=== PATIENT | female | born 1995 | race Two or more races ===

== ENCOUNTER 2016-08-19 20:56 | Outpatient (CLI) | payer MEDICAID ==
[~2016-08-19] VITALS: Ht 160 cm; Wt 99.1 kg
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
[~2016-08-19 20:56] MED LIST: BREO ELLIPTA 11 EACH INH; DRISDOL 5050000 UNIT PO; MINIPRESS2 MG PO; MYCOSTATIN OINT30 GM TOP; PROVERA10 MG PO; PROZAC10 MG PO; VITAMIN D35000 UNI1 PO; ZOLOFT50 MG PO
[2016-08-19 21:39] LABS: BILIRUBIN URINE NEGATIVE (NEGATIVE); BLOOD URINE NEGATIVE /UL (NEGATIVE); COLOR URINE YELLOW (YELLOW); GLUCOSE URINE NEGATIVE (NEGATIVE); KETONE URINE NEGATIVE (NEGATIVE); LEUKOCYTES URINE 25 /UL (NEGATIVE); NITRITE URINE NEGATIVE (NEGATIVE); PROTEIN URINE NEGATIVE (NEGATIVE); TURBIDITY URINE CLEAR (CLEAR); UROBILINOGEN URINE 1 mg/dL (NORMAL)
[2016-08-19 21:46] LABS: BACTERIA URINE FEW (NEGATIVE); RBC URINE NEGATIVE #/HPF (NEGATIVE); WBC URINE 0-2 #/HPF (NEGATIVE)
[2016-08-19] MEDS ORDERED: PROVENTIL OR V6.7 GM INH (21:55)
[2016-08-19] MEDS ORDERED: PROAIR HFA8.5 GM INH (21:56)
[2016-08-19] MEDS ORDERED: FLAGYL500 M1 PO (21:58)
[2016-08-19] MEDS ORDERED: PHENERGAN25 M1 PO (22:00)
[2016-08-19] MEDS ORDERED: ZOLOFT50 MG PO (22:00)
[2016-08-19] MEDS ORDERED: ZANTAC300 MG PO (22:02)
[2016-08-19] MEDS ORDERED: PROGESTERONE200 MG VAG (22:04)
[2016-08-19] MEDS ORDERED: PRENATAL 1+1)(P1 TAB PO (22:05)
[2016-11-07] MEDS ORDERED: TUMS200 MG PO (17:29)
== END 2016-08-19 23:00 | disposition disaster alternative care site (69) ==
LOC: GOBM 20:56 → GOBS 20:57 → GOBM 23:00
PROVIDERS: Family Medicine
DX: O47.02 False labor before 37 completed weeks of gestation, second trimester (principal); Z3A.26 26 weeks gestation of pregnancy; J45.909 Unspecified asthma, uncomplicated; K21.9 Gastro-esophageal reflux disease without esophagitis; O26.892 Other specified pregnancy related conditions, second trimester; O99.342 Other mental disorders complicating pregnancy, second trimester; F32.9 Major depressive disorder, single episode, unspecified
CPT/HCPCS: G0463

== ENCOUNTER 2016-11-09 05:41 | Inpatient (IN) | payer MEDICAID ==
[~2016-11-09] VITALS: Ht 162.6 cm; Wt 107.1 kg
--- NOTE | ~2016-11-09 | DS ---
PATIENT'S NAME: JANNA GONZALEZ [facility] AGE: 21 Y [address] ROOM: [place] [address] LOCATION: GOBS ADMIT DATE: 11/10/2016 Discharge Summary DISCHARGE DATE: 11/14/2016 FAMILY PHYSICIAN: Lois Mullisn MD ATTENDING PHYSICIAN: Skip Gutierrez PRINCIPAL DIAGNOSIS: Premature rupture of membranes. SECONDARY DIAGNOSES: 1. A 37 and 1/6th week intrauterine . 2. Depression. 3. Gestational diabetes, diet-controlled. 4. Postoperative anemia. 5. Arrest of descent. PROCEDURE: Primary low transverse section on 11/10/2016. SUMMARY: Janna is a 21-year-old, 1, para 0 female who arrived with premature rupture of membranes. She did receive Pitocin for augmentation. She had a very slow labor progress and did achieve complete dilation and pushed for 3 hours without descending passed about a [address] Hall was consulted and we proceeded with section. She delivered an 8 pounds, 14 ounce male with good scores. She had a fair amount of bleeding during surgery. Postop hemoglobin was 7.9. She was transfused 1 unit of blood as she is orthostatic and had near syncope and she felt markedly better. The transfusion occurred on 11/13/2016. At this time, she is medically stable, her hemoglobin is 8.3, after a unit of blood, she is up and around, no longer orthostatic or near syncopal, and is ready to go home. DISMISSAL: Janna is dismissed on 11/14/2016 in improved condition. DISMISSAL MEDICATIONS: Include: 1. Iron 325 mg daily. 2. vitamins daily. 3. Sertraline 50 mg daily. 4. Motrin 800 mg q.8 h. p.r.n. pain. 5. Percocet 5/325 one q.4 h. p.r.n. pain. 6. ProAir HFA 2 puffs q.4 h. p.r.n. 7. Calcium carbonate as needed for heartburn. FOLLOW UP: She will follow up with me in [address] Hall in 2 weeks to recheck. The postoperative instructions given i.e. no lifting heavier than the baby, no driving for 2 weeks. She will let us know if fevers, increased bleeding, increased pain, or other complications. PATIENT'S NAME: JANNA GONZALEZ [facility] AGE: 21 Y [address] ROOM: [address] [address] LOCATION: [facility] ADMIT DATE: 11/10/2016 Discharge Summary DISCHARGE DATE: 11/14/2016 FAMILY PHYSICIAN: Lois Mullins MD ATTENDING PHYSICIAN: Skip Gutierrez MD MODE SCHWARTZ/modl /[id number] d: 11/19/16 0042 t: 11/29/16 0836, DISCHARGE SUMMARY
--- NOTE | ~2016-11-09 | OR ---
PATIENT'S NAME: KASSANDRA GONZALEZ [facility] AGE: 21 Y [address] ROOM: [place] [address] LOCATION: GOBS ADMIT DATE: 11/10/2016 OR/Procedure Report DISCHARGE DATE: FAMILY PHYSICIAN: Lois Mullins MD ATTENDING PHYSICIAN: Skip Gutierrez SURGEON: Allie Hall MD CRUDE OIL DRIVER: Dr. Mullins. DATE OF PROCEDURE: 11/10/2016 PREOPERATIVE DIAGNOSES: 1. Intrauterine at-term. 2. History of spontaneous rupture of membranes. 3. Pitocin augmentation. 4. Protracted labor curve and arrest of descent. 5. Gestational diabetes. POSTOPERATIVE DIAGNOSES: 1. Intrauterine at-term. 2. History of spontaneous rupture of membranes. 3. Pitocin augmentation. 4. Protracted labor curve and arrest of descent. 5. Gestational diabetes. PROCEDURE PERFORMED: Primary low transverse section. ANESTHESIA: Epidural. BLOOD LOSS: 1000 mL. COMPLICATIONS: None. DESCRIPTION OF PROCEDURE: The patient was taken to the operating room. After her epidural was dosed up, she was prepped and draped in the usual sterile standard fashion. A verbal time-out was undertaken. The prep was applied and dried. She was prepped and draped. A Pfannenstiel skin incision was made with a knife and carried down to the level of the fascia. The fascia was nicked in the midline, and the incision was carried out laterally. The fascia was sharply and bluntly dissected from the underlying rectus muscles. The peritoneum was opened sharply and stretched. A bladder blade was placed. The bladder reflection was taken down sharply. A low transverse uterine incision was made with the knife. The incision was taken out laterally with the door machine operator's fingers. The vertex was grasped and delivered over the uterine incision. Shoulders and body were easily delivered. Baby boy let out a spontaneous cry, and his cord was doubly clamped and cut. He was handed off to the warmer. A 3-vessel cord was noted. Placenta was delivered manually PATIENT'S NAME: KASSANDRA GONZALEZ [facility] AGE: 21 Y [address] ROOM: [place] [address] LOCATION: [facility] ADMIT DATE: 11/10/2016 OR/Procedure Report DISCHARGE DATE: FAMILY PHYSICIAN: Lois Mullins MD ATTENDING PHYSICIAN: Skip Gutierrez and intact. The uterus was exteriorized.. Tubes and ovaries were normal. The uterine incision was closed in a running locking stitch of 0 chromic. A second imbricating stitch was performed. Several [id number] were needed for bleeding vessels along the way. The urine was initially pink in the [place] and now is clearing up. The bladder reflection looked intact and dry. I looked at it several times. Tubes and ovaries were normal. The wet packing lap I used to hold back the omentum was removed. The uterus was replaced within the peritoneal cavity. The peritoneum was closed with 2-0 Vicryl. 0 Vicryl was used to close the fascia. 2-0 Vicryl was used to close the subcutaneous adipose tissue, and 4-0 Vicryl closed the skin. Steri-Strips and benzoin were placed. The patient tolerated the procedure well. MD KUNAL LOVE/pippal /[id number] d: 11/10/16 1310 t: 12/04/16 0902, OPERATIVE SUMMARY
--- NOTE | ~2016-11-09 | CON ---
PATIENT'S NAME: KASSANDRA GONZALEZ [facility] AGE: 21 Y [address] ROOM: [place] [address] LOCATION: GOBS ADMIT DATE: 11/10/2016 Consultation DISCHARGE DATE: FAMILY PHYSICIAN: Lois Mullins MD ATTENDING PHYSICIAN: Skip Gutierrez HISTORY OF PRESENT ILLNESS: This is a 21-year-old, 1, para 0, with a due date of 11/24/2016. She presented yesterday with spontaneous rupture of membranes, about 2 cm yesterday morning. Pitocin was started and reached a maximum of 21 milliunits per minute. At 4 cm dilation last night, she did get an epidural. She progressed on to complete at 2:30. She started pushing at some point after that and was able to bring the head down to +2 to +3 station. She was not able to bring any further. Because of the protracted labor curve and arrest of descent, a Dictation Ends Here. MD KUNAL LOVE/dorina /[id number] d: 11/10/16 1141 t: 12/04/16 0857, CONSULTATION REPORT
--- NOTE | ~2016-11-09 | CON ---
PATIENT'S NAME: KASSANDRA GONZALEZ [facility] AGE: 21 Y [address] ROOM: [place] [address] LOCATION: [facility] ADMIT DATE: 11/10/2016 Consultation DISCHARGE DATE: FAMILY PHYSICIAN: Lois Mullins MD ATTENDING PHYSICIAN: Skip Gutierrez CONTINUATION: IMPRESSION: 1. Intrauterine at term. 2. Arrest of descent and abnormal labor curve. 3. Gestational diabetes. 4. Depression. PLAN: We will proceed with section. She understands surgical risks to include, but not limited to, bleeding, transfusion, infection, injury to other organs, including bowel, bladder, blood vessels, and ureters, and need for additional surgery. Appropriate consents are signed and witnessed. She also understands that we may have some difficulty delivering the head because of the low station. Consents are signed and witnessed. MD KIM LOVEP/modl /[id number] d: 11/10/16 1148 t: 12/04/16 0859, CONSULTATION REPORT
[~2016-11-09 05:41] MED LIST changes: +FLAGYL500 M1 PO; +PHENERGAN25 M1 PO; +PRENATAL 1+1)(P1 TAB PO; +PROAIR HFA8.5 GM INH; +PROGESTERONE200 MG VAG; +PROVENTIL OR V6.7 GM INH; +TUMS200 MG PO; +ZANTAC300 MG PO
[2016-11-09 07:17] LABS: BASOPHIL % 0.2 %; EOSINOPHIL % 0.3 %; HEMATOCRIT 35.2 % (33.0-46.0); HEMOGLOBIN 11.8 g/dL (11.0-15.0); IMMATURE GRANULOCYTE % 0.3 %; LYMPHOCYTE # 2.4 K/uL (0.8-4.0); LYMPHOCYTE % 24.3 %; MCH 27.7 pg (27.0-34.0); MCHC 33.5 gm/dL (32.0-36.5); MCV 82.6 fl (83.0-98.0); MONOCYTE # 0.6 K/uL (0.0-1.0); MONOCYTE % 5.9 %; MPV 11.8 fl (9.4-12.4); NEUTROPHIL # (ANC) 6.8 K/uL (1.8-7.8); NRBC % 0 /100WBC (0-0.00); PLATELET COUNT 290 K/uL (150-450); RBC 4.26 M/uL (3.50-5.00); RDW-CV 13.4 % (11.9-14.6); WBC 9.8 K/uL (4.0-11.0)
[2016-11-10 02:51] LABS: BASOPHIL % 0.2 %; HEMATOCRIT 34.5 % (33.0-46.0); HEMOGLOBIN 11.5 g/dL (11.0-15.0); IMMATURE GRANULOCYTE # 0.1 K/uL (0.0-0.3); IMMATURE GRANULOCYTE % 0.5 %; LYMPHOCYTE # 1.6 K/uL (0.8-4.0); LYMPHOCYTE % 12.3 %; MCH 27.5 pg (27.0-34.0); MCHC 33.3 gm/dL (32.0-36.5); MCV 82.5 fl (83.0-98.0); MONOCYTE # 0.6 K/uL (0.0-1.0); MONOCYTE % 4.2 %; MPV 11.8 fl (9.4-12.4); NEUTROPHIL % 82.8 %; NRBC % 0 /100WBC (0-0.00); PLATELET COUNT 265 K/uL (150-450); RBC 4.18 M/uL (3.50-5.00); RDW-CV 13.7 % (11.9-14.6); WBC 13.2 K/uL (4.0-11.0)
[2016-11-11 04:19] LABS: BASOPHIL % 0.2 %; EOSINOPHIL % 0.2 %; IMMATURE GRANULOCYTE % 0.4 %; LYMPHOCYTE # 1.3 K/uL (0.8-4.0); LYMPHOCYTE % 12.3 %; MCV 84.3 fl (83.0-98.0); MONOCYTE # 0.5 K/uL (0.0-1.0); MONOCYTE % 4.4 %; MPV 11.6 fl (9.4-12.4); NEUTROPHIL % 82.5 %; NRBC % 0 /100WBC (0-0.00); RDW-CV 13.7 % (11.9-14.6); WBC 10.9 K/uL (4.0-11.0)
[2016-11-11 04:23] LABS: HEMATOCRIT 24.1 % (33.0-46.0); HEMOGLOBIN 7.9 g/dL (11.0-15.0); MCH 27.6 pg (27.0-34.0); MCHC 32.8 gm/dL (32.0-36.5); PLATELET COUNT 210 K/uL (150-450); RBC 2.86 M/uL (3.50-5.00)
[2016-11-13 06:20] LABS: BASOPHIL % 0.1 %; EOSINOPHIL # 0.2 K/uL (0.0-0.5); EOSINOPHIL % 1.8 %; HEMATOCRIT 24.5 % (33.0-46.0); IMMATURE GRANULOCYTE # 0.1 K/uL (0.0-0.3); IMMATURE GRANULOCYTE % 0.5 %; LYMPHOCYTE # 1.8 K/uL (0.8-4.0); LYMPHOCYTE % 18.1 %; MCH 27.9 pg (27.0-34.0); MCHC 32.7 gm/dL (32.0-36.5); MCV 85.4 fl (83.0-98.0); MONOCYTE # 0.5 K/uL (0.0-1.0); MONOCYTE % 4.7 %; MPV 9.9 fl (9.4-12.4); NEUTROPHIL # (ANC) 7.3 K/uL (1.8-7.8); NEUTROPHIL % 74.8 %; NRBC % 0 /100WBC (0-0.00); RBC 2.87 M/uL (3.50-5.00); RDW-CV 14.3 % (11.9-14.6); WBC 9.8 K/uL (4.0-11.0)
[2016-11-13 06:26] LABS: PLATELET COUNT 284 K/uL (150-450)
[2016-11-13] MEDS ORDERED: TUMS200 MG PO (08:06)
[2016-11-13 14:57] LABS: HEMATOCRIT 26.3 % (33.0-46.0); HEMOGLOBIN 8.4 g/dL (11.0-15.0)
[2016-11-14 06:40] LABS: HEMATOCRIT 25.3 % (33.0-46.0); HEMOGLOBIN 8.3 g/dL (11.0-15.0)
[2016-11-14] MEDS ORDERED: FEOSOL325 MG PO (08:57)
[2016-11-14] MEDS ORDERED: MOTRIN800 MG PO (08:57)
[2016-11-14] MEDS ORDERED: PERCOCET 5-3251 EACH PO (08:58)
== END 2016-11-14 16:00 | disposition disaster alternative care site (69) | DRG 766 ==
LOC: GOBM 05:41 → GOBS 05:41 → GOBM 05:42 → GOBS 11-10 00:05 → GOBM 11-24 15:09
PROVIDERS: Family Medicine; ADMIT Obstetrics & Gynecology Obstetrics
PROC: 10D00Z1 Extraction of Products of Conception, Low, Open Approach (ICD-10-PCS; principal; 2016-11-10)
DX: O42.02 Full-term premature rupture of membranes, onset of labor within 24 hours of rupture (principal); O24.419 Gestational diabetes mellitus in pregnancy, unspecified control; F32.9 Major depressive disorder, single episode, unspecified; Z3A.37 37 weeks gestation of pregnancy; Z37.0 Single live birth; O62.1 Secondary uterine inertia; O99.343 Other mental disorders complicating pregnancy, third trimester
CPT/HCPCS: J0290; J1580; J1885; J2001; J2405; J2590; J3010; J7030; J7040; J7120; P9016